=== PATIENT | male | born 1985 | race Caucasian/White ===

== ENCOUNTER 2019-05-28 14:35 | Emergency (ER) | payer OTHER ==
--- NOTE | 2019-05-28 14:40 | ERPHSYRPT ---
- History of Present Illness Time Seen by Provider: 05/28/19 14:40 Historian: patient Exam Limitations: no limitations Physician History: This is a 33-year-old white male who takes Ativan on a chronic daily basis. He has been out for the last few days. Patient states that he 2 to 3 days ago he had some nausea and vomiting episodes. However the last 2 days the vomiting has stopped but he has had persistent nausea. Patient also complains of some sweating. Patient denies chest pain he denies shortness of breath. He denies myalgias and arthralgias. The patient states that he she does not want any kind of work-up. Patient was offered IV fluids, antiemetics and obtaining urine and lab for evaluation. In addition, patient was offered an EKG as well as a respiratory panel. Patient refused all of the above. The only intervention he is excepting is oral Zofran with a prescription for home. Patient will sign a refusal of treatment. Timing/Duration: day(s) (3) Quality: other (Nausea) Severity of Pain-Max: none Severity of Pain-Current: none Modifying Factors: Improves With: vomiting, other (Nominate has subsided but he has persistent chronic nausea) Associated Symptoms: loss of appetite, nausea Previous symptoms: no prior history Allergies/Adverse Reactions: No Known Drug Allergies Allergy (Unverified 05/28/19 15:06) Home Medications: Alprazolam 0.5 mg [xanAX 0.5 MG] 0.5 mg BID 05/28/19 [History] Metoprolol Succinate 25 mg DAILY 05/28/19 [History] Travel Risk - International Travel Have you traveled outside of the country in past 3 weeks: No Have you or anyone close to you been diagnosed with or: No Do your reside in a community with a known COVID-19 case?: Yes If Yes where:: [facility] - Coronavirus Screening Has patient experienced Coronavirus symptoms: No - Review of Systems Constitutional: No Symptoms Eyes: No Symptoms Ears, Nose, & Throat: No Symptoms Respiratory: No Symptoms Cardiac: No Symptoms Abdominal/Gastrointestinal: Nausea, Appetite Changes, No Abdominal Pain (Nausea) , No Vomiting, No Diarrhea Genitourinary Symptoms: No Symptoms Musculoskeletal: No Symptoms Skin: No Symptoms Neurological: No Symptoms Psychological: No Symptoms Endocrine: No Symptoms Hematologic/Lymphatic: No Symptoms Immunological/Allergic: No Symptoms All Other Systems: Reviewed and Negative - Past Medical History Pertinent Past Medical History: No Neurological History: No Pertinent History ENT History: No Pertinent History Cardiac History: No Pertinent History Respiratory History: No Pertinent History Endocrine Medical History: No Pertinent History Musculoskeletal History: No Pertinent History GI Medical History: No Pertinent History History: No Pertinent History Psycho-Social History: No Pertinent History Male Reproductive Disorders: No Pertinent History - Past Surgical History Neuro Surgical History: No Pertinent History Cardiac: No Pertinent History Respiratory: No Pertinent History Gastrointestinal: No Pertinent History Genitourinary: No Pertinent History Musculoskeletal: No Pertinent History Male Surgical History: No Pertinent History - Nursing Vital Signs Nursing Vital Signs: Initial Vital Signs Temperature 97.2 F 05/28/19 14:49 Pulse Rate 89 05/28/19 14:49 Respiratory Rate 18 05/28/19 14:49 Blood Pressure 133/88 05/28/19 14:49 O2 Sat by Pulse Oximetry 98 05/28/19 14:49 Pain Scale Pain Intensity 0 - Physical Exam General Appearance: mild distress, alert, anxiety Eye Exam: PERRL/EOMI, eyes nml inspection Ears, Nose, Throat Exam: normal ENT inspection, moist mucous membranes Neck Exam: normal inspection, non-tender, supple, full range of motion Respiratory Exam: normal breath sounds, lungs clear, airway intact, No chest tenderness, No respiratory distress Cardiovascular Exam: regular rate/rhythm, normal heart sounds, normal peripheral pulses Gastrointestinal/Abdomen Exam: soft, normal bowel sounds, No tenderness Rectal Exam: not done Back Exam: normal inspection, normal range of motion, No CVA tenderness, No vertebral tenderness Extremity Exam: normal inspection, normal range of motion, pelvis stable Neurologic Exam: alert, oriented x 3, cooperative, 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 Skin Exam: normal color, warm, dry Lymphatic Exam: No adenopathy SpO2 Interpretation: normal O2 Delivery: Room Air - Course Nursing assessment & vital signs reviewed: Yes Ordered Tests: Active Orders 24 hr Category Date Time Status Isolation, Initiate & Maintain Q4H Care 05/28/19 14:56 Active Medication Summary Discontinued Medications Generic Name Dose Route Start Last Admin Trade Name Freq PRN Reason Stop Dose Admin Ondansetron HCl 4 mg 05/28/19 15:03 05/28/19 15:08 Zofran Odt 4 Mg PO 05/28/19 15:04 4 mg STAT ONE Administration Ondansetron HCl Confirm 05/28/19 15:08 Zofran Odt 4 Mg Administered 05/28/19 15:09 Dose 4 mg .ROUTE .STK-MED ONE - Progress Progress: unchanged Progress Note: 05/28/19 15:18 Patient is refusing all treatment other than Zofran ODT here in the emergency department. I discussed with him the risk of him having worsening symptoms and possible even . I told him I cannot give him a diagnosis if I cannot do a work-up. Patient understands the risks the alternatives and benefits of the alternatives. Patient still is refusing a work-up he will sign a refusal of treatment form. I told him I would send a prescription with him to his pharmacy for Zofran. I also offered him to return to the emergency department if his symptoms persist or worsen. Counseled pt/family regarding: diagnosis, need for follow-up - Departure Departure Disposition: Home Clinical Impression: Nausea Condition: Stable Critical Care Time: No Referrals: FROYLAN CRAWLEY JR [Primary Care Provider] - Additional Instructions: Clear liquid diet. Do not advance until you are tolerating liquids well. Return to the emergency department if your symptoms worsen. Follow-up with your primary care physician on an outpatient basis if your symptoms do not worsen but are persistent. Prescriptions: Ondansetron ODT 4 MG [Zofran Odt 4 mg] 4 mg PO Q6H PRN PRN #10 tab.rapdis PRN Reason: Vomiting
[2019-05-28] MEDS: ZOFRAN ODT 4 MG PO ONE (15:08)
[2019-05-28] MEDS ORDERED: ZOFRAN ODT 4 MG ONE (15:08)
[2019-05-28 15:32] VITALS: BP 120/80; PULSE 80; O2SAT 96
== END 2019-05-28 15:32 | disposition home or self-care (01) ==
LOC: ED 14:35
DX: R11.0 Nausea (principal); Z79.899 Other long term (current) drug therapy
CPT/HCPCS: 99283; Q0162

== ENCOUNTER 2019-12-05 19:25 | Emergency (ER) | payer OTHER ==
[2019-12-05] MEDS ORDERED: BENADRYL 50 MG/ML IV ONE (19:37)
[2019-12-05] MEDS ORDERED: solu-MEDROL 125 MG IV ONE (19:37)
--- NOTE | 2019-12-05 19:37 | ERPHSYRPT ---
- History of Present Illness Time Seen by Provider: 12/05/19 19:30 Source: patient Exam Limitations: no limitations Physician History: For the past 13.5 hours pt has had tightness in his neck, shortness of air, difficulty swallowing and vomiting x2 without blood. Pt denies abdominal pain, diarrhea, fever, chills. LBM was today & wnl. Pt took a 200mg tessalon perle about 22.5 hours ago. Allergies/Adverse Reactions: Penicillins Allergy (Severe, Verified 12/05/19 19:37) Shortness of Breath tramadol [From Ultram] Allergy (Severe, Verified 12/05/19 19:37) Shortness of Breath Home Medications: Alprazolam 0.5 mg [xanAX 0.5 MG] 0.5 mg PO BID 05/28/19 [History] Metoprolol Succinate 25 mg PO DAILY 05/28/19 [History] Benzonatate 200 mg PO TID 12/05/19 [History] Gabapentin 300 mg PO TID PRN 12/05/19 [History] Hx Tetanus, Diphtheria Vaccination/Date Given: No Hx Influenza Vaccination/Date Given: Yes Hx Pneumococcal Vaccination/Date Given: No Travel Risk - International Travel Have you traveled outside of the country in past 3 weeks: No - Coronavirus Screening Are you exhibiting any of the following symptoms?: Yes Symptoms: Shortness of Breath Close contact with a COVID-19 positive Pt in past 14-21 Days: No - Review of Systems Constitutional: No Fever, No Chills Ears, Nose, & Throat: Other (tightness in the neck and difficulty swallowing for the past 13.5 hours.) Respiratory: Dyspnea Cardiac: No Chest Pain Abdominal/Gastrointestinal: Vomiting, No Abdominal Pain, No Diarrhea Skin: No Rash Neurological: No Headache All Other Systems: Reviewed and Negative - Past Medical History Pertinent Past Medical History: No Neurological History: No Pertinent History ENT History: No Pertinent History Cardiac History: No Pertinent History Respiratory History: No Pertinent History Endocrine Medical History: No Pertinent History Musculoskeletal History: No Pertinent History GI Medical History: No Pertinent History History: No Pertinent History Psycho-Social History: No Pertinent History Male Reproductive Disorders: No Pertinent History Other Medical History: pt states he gets a lot of PVC's - Past Surgical History Past Surgical History: Yes Neuro Surgical History: No Pertinent History Cardiac: No Pertinent History Respiratory: No Pertinent History Gastrointestinal: No Pertinent History Genitourinary: No Pertinent History Musculoskeletal: No Pertinent History Male Surgical History: No Pertinent History - Social History Smoking Status: Former smoker Exposure to second hand smoke: No Drug Use: none Patient Lives Alone: No - Nursing Vital Signs Nursing Vital Signs: Initial Vital Signs Pulse Rate 87 12/05/19 19:36 Respiratory Rate 22 12/05/19 19:36 Blood Pressure 151/99 12/05/19 19:36 O2 Sat by Pulse Oximetry 98 12/05/19 19:36 Pain Scale Pain Intensity 5 - Physical Exam General Appearance: alert, anxiety Eye Exam: PERRL/EOMI Ears, Nose, Throat Exam: normal pharynx Neck Exam: normal inspection Respiratory Exam: lungs clear Cardiovascular/Chest Exam: normal heart sounds Abdominal/Gastrointestinal Exam: soft, normal bowel sounds Extremity Exam: No pedal edema Peripheral Pulses Exam: dorsalis-pedis (R): 2+, dorsalis-pedis (L): 2+ Neurologic Exam: alert, cooperative Skin Exam: warm, dry SpO2 Interpretation: normal SpO2: 98 O2 Delivery: Room Air - Course Nursing assessment & vital signs reviewed: Yes EKG Interpreted by Me: RATE (92), Sinus Rhythm, NORMAL AXIS, NORMAL INTERVALS - Radiology Exams Chest X-ray Interpretation: Interpreted by me, No Pneumonia Ordered Tests: Active Orders 24 hr Category Date Time Status EKG-ER Only STAT Care 12/05/19 19:37 Active IV Insertion STAT Care 12/05/19 19:37 Active CHEST 2 VIEWS (PA AND LAT) Stat Exams 12/05/19 19:38 Taken AMYLASE Stat Lab 12/05/19 19:40 Completed CBC W DIFF Stat Lab 12/05/19 19:40 Completed CMP Stat Lab 12/05/19 19:40 Completed D-DIMER QUANTITATIVE Stat Lab 12/05/19 19:40 Completed ETHYL ALCOHOL Stat Lab 12/05/19 19:57 Completed LIPASE Stat Lab 12/05/19 19:40 Completed MAGNESIUM Stat Lab 12/05/19 19:40 Completed NT PRO BNP Stat Lab 12/05/19 19:40 Completed TROPONIN Q3H Lab 12/05/19 19:40 Completed TROPONIN Q3H Lab 12/05/19 22:45 Ordered TROPONIN Q3H Lab 12/06/19 01:45 Ordered TROPONIN Q3H Lab 12/06/19 04:45 Ordered TROPONIN Q3H Lab 12/06/19 07:45 Ordered UA W/RFX UR CULTURE Stat Lab 12/05/19 19:41 Ordered Urine Triage Profile Stat Lab 12/05/19 19:42 Ordered Medication Summary Discontinued Medications Generic Name Dose Route Start Last Admin Trade Name Drakeq PRN Reason Stop Dose Admin Diphenhydramine HCl Confirm 12/05/19 19:38 Benadryl 50 Mg/Ml Administered 12/05/19 19:39 Dose 50 mg .ROUTE .STK-MED ONE Diphenhydramine HCl 50 mg 12/05/19 19:37 12/05/19 19:44 Benadryl 50 Mg/Ml IV 12/05/19 19:38 50 mg STAT ONE Administration Methylprednisolone Sodium Succinate Confirm 12/05/19 19:38 Solu-Medrol 125 Mg Administered 12/05/19 19:39 Dose 125 mg .ROUTE .STK-MED ONE Methylprednisolone Sodium Succinate 125 mg 12/05/19 19:37 12/05/19 19:44 Solu-Medrol 125 Mg IV 12/05/19 19:38 125 mg STAT ONE Administration Lab/Rad Data: Laboratory Result Diagrams 12/05/19 19:40 12/05/19 19:40 Laboratory Results 12/05/19 12/05/19 12/05/19 Range/Units 19:57 19:40 19:40 WBC (4.0-10.5) K/mm3 RBC (4.1-5.6) M/mm3 Hgb (12.5-18.0) gm/dl Hct (42-50) % MCV (78-100) fl MCH (26-32) pg MCHC (32-36) g/dl RDW (11.5-14.0) % Plt Count (150-450) K/mm3 MPV (7.5-11.0) fl Gran % (36.0-66.0) % Eos # (Auto) (0-0.5) Absolute Lymphs (auto) (1.0-4.6) Absolute Monos (auto) (0.0-1.3) Lymphocytes % (24.0-44.0) % Monocytes % (0.0-12.0) % Eosinophils % (0.00-5.0) % Basophils % (0.0-0.4) % Absolute Granulocytes (1.4-6.9) Basophils # (0-0.4) D-Dimer 414 (215-500) ng/mL Sodium (137-145) mmol/L Potassium (3.5-5.1) mmol/L Chloride (98-107) mmol/L Carbon Dioxide (22-30) mmol/L Anion Gap (5-15) MEQ/L BUN (9-20) mg/dL Creatinine (0.66-1.25) mg/dL Estimated GFR ML/MIN Glucose (74-106) mg/dL Calcium (8.4-10.2) mg/dL Magnesium (1.6-2.3) mg/dL Total Bilirubin (0.2-1.3) mg/dL AST (17-59) U/L ALT (0-50) U/L Alkaline Phosphatase (38-126) U/L Troponin I < 0.012 (0.000-0.034) ng/mL NT-Pro-B Natriuret Pep (0-450) pg/mL Serum Total Protein (6.3-8.2) g/dL Albumin (3.5-5.0) g/dL Amylase (30-110) U/L Lipase (23-300) U/L Ethyl Alcohol < 10 (0-10) mg/dL 12/05/19 12/05/19 Range/Units 19:40 19:40 WBC 13.4 H (4.0-10.5) K/mm3 RBC 4.63 (4.1-5.6) M/mm3 Hgb 15.0 (12.5-18.0) gm/dl Hct 44.7 (42-50) % MCV 96.5 (78-100) fl MCH 32.4 H (26-32) pg MCHC 33.6 (32-36) g/dl RDW 13.2 (11.5-14.0) % Plt Count 218 (150-450) K/mm3 MPV 8.9 (7.5-11.0) fl Gran % 76.6 H (36.0-66.0) % Eos # (Auto) 0.12 (0-0.5) Absolute Lymphs (auto) 1.67 (1.0-4.6) Absolute Monos (auto) 1.33 H (0.0-1.3) Lymphocytes % 12.5 L (24.0-44.0) % Monocytes % 9.9 (0.0-12.0) % Eosinophils % 0.9 (0.00-5.0) % Basophils % 0.1 (0.0-0.4) % Absolute Granulocytes 10.25 H (1.4-6.9) Basophils # 0.02 (0-0.4) D-Dimer (215-500) ng/mL Sodium 136 L (137-145) mmol/L Potassium 3.6 (3.5-5.1) mmol/L Chloride 101 (98-107) mmol/L Carbon Dioxide 28 (22-30) mmol/L Anion Gap 10.3 (5-15) MEQ/L BUN 14 (9-20) mg/dL Creatinine 0.68 (0.66-1.25) mg/dL Estimated GFR > 60.0 ML/MIN Glucose 100 (74-106) mg/dL Calcium 9.3 (8.4-10.2) mg/dL Magnesium 1.6 (1.6-2.3) mg/dL Total Bilirubin 1.20 (0.2-1.3) mg/dL AST 40 (17-59) U/L ALT 48 (0-50) U/L Alkaline Phosphatase 50 (38-126) U/L Troponin I (0.000-0.034) ng/mL NT-Pro-B Natriuret Pep 43.2 (0-450) pg/mL Serum Total Protein 7.7 (6.3-8.2) g/dL Albumin 4.6 (3.5-5.0) g/dL Amylase 118 H (30-110) U/L Lipase 39 (23-300) U/L Ethyl Alcohol (0-10) mg/dL - Progress Progress: improved Counseled pt/family regarding: lab results, need for follow-up, rad results - Departure Departure Disposition: Home Clinical Impression: Allergic reaction caused by a drug, Dyspnea, Vomiting Condition: Stable Critical Care Time: No Referrals: FROYLAN CRAWLEY JR [Primary Care Provider] - Additional Instructions: Do not take tessalon perle again. Follow up with private doctor tomorrow. Forms: Work/School Release Form Prescriptions: Hydroxyzine HCl 25 mg [Atarax 25 mg] 50 mg PO Q4H PRN PRN #30 tablet PRN Reason: Allergies Methylprednisolone Packet [Medrol Dosepack] 4 mg PO UD #30 packet
[2019-12-05] MEDS ORDERED: solu-MEDROL 125 MG ONE (19:38)
[2019-12-05] MEDS ORDERED: BENADRYL 50 MG/ML ONE (19:38)
[2019-12-05 19:52] LABS: Absolute Neutrophil Ct (ANC) 10.25 (1.4-6.9); BASOPHIL % 0.1 % (0.0-0.4); Basophil (Absolute #) 0.02 (0-0.4); Eosinophil % 0.9 % (0.00-5.0); Eosinophil (Absolute #) 0.12 (0-0.5); Hematocrit 44.7 % (42-50); Lymphocyte (Absolute #) 1.67 (1.0-4.6); Lymphocytes % 12.5 % (24.0-44.0); Mean Cell Volume 96.5 fl (78-100); Mean Corpuscular Hemoglobin 32.4 pg (26-32); Mean Corpuscular Hgb Concent. 33.6 g/dl (32-36); Mean Platelet Volume 8.9 fl (7.5-11.0); Monocyte (Absolute #) 1.33 (0.0-1.3); Monocytes % 9.9 % (0.0-12.0); Neutrophil % 76.6 % (36.0-66.0); Platelet Count 218 K/mm3 (150-450); Red Blood Count 4.63 M/mm3 (4.1-5.6); Red Cell Distribution Width 13.2 % (11.5-14.0); White Blood Count 13.4 K/mm3 (4.0-10.5)
[2019-12-05 20:13] LABS: ALBUMIN 4.6 g/dL (3.5-5.0); ALKALINE PHOSPHATASE 50 U/L (38-126); AMYLASE 118 U/L (30-110); ANION GAP 10.3 MEQ/L (5-15); BLOOD UREA NITROGEN 14 mg/dL (9-20); CHLORIDE 101 mmol/L (98-107); Calcium 9.3 mg/dL (8.4-10.2); Carbon Dioxide 28 mmol/L (22-30); Creatinine 1 0.68 mg/dL (0.66-1.25); EST GLOMERULAR FILTRATION RATE > 60.0 ML/MIN; Glucose 100 mg/dL (74-106); LIPASE 39 U/L (23-300); MAGNESIUM 1.6 mg/dL (1.6-2.3); NT PRO BNP 43.2 pg/mL (0-450); Potassium 3.6 mmol/L (3.5-5.1); SGOT/AST 40 U/L (17-59); SGPT/ALT 48 U/L (0-50); SODIUM 136 mmol/L (137-145); Total Protein 7.7 g/dL (6.3-8.2)
[2019-12-05 20:16] VITALS: PULSE 87
[2019-12-05 20:24] VITALS: O2SAT 98
[2019-12-05 20:45] LABS: Appearance CLEAR (CLEAR); Bilirubin NEGATIVE (NEGATIVE); Blood NEGATIVE Ery/ul (0-5); Glucose NEGATIVE (NEGATIVE); Ketones NEGATIVE (NEGATIVE); Leukocyte Esterase NEGATIVE (NEGATIVE); Mucus SLIGHT /HPF (NEGATIVE); Nitrite NEGATIVE (NEGATIVE); Protein,Urine Dip NEGATIVE (Negative); Specific Gravity 1.004 (1.005-1.025); Urobilinogen NEGATIVE mg/dL (0-1)
[2019-12-05 20:58] LABS: Amphetamine,Urine NEGATIVE (NEGATIVE); Barbiturate,Urine NEGATIVE (NEGATIVE); Benzodiazepine,Urine NEGATIVE (NEGATIVE); Cocaine,Urine NEGATIVE (NEGATIVE); Methadone,Urine NEGATIVE (NEGATIVE); Opiate,Urine NEGATIVE (NEGATIVE); PCP,Urine NEGATIVE (NEGATIVE); THC,Urine NEGATIVE (NEGATIVE)
[2019-12-05 21:19] VITALS: BP 134/83
--- NOTE | 2019-12-06 08:40 | XRAY ---
Indication: Chest tightness, short of breath, and swelling in throat. Comparison: None PA/lateral chest hyperinflated and clear. Heart and mediastinal structures within normal limits. Bony thorax intact with mild pectus carinatum deformity. Impression: Nonacute hyperinflated chest.
== END 2019-12-05 21:12 | disposition home or self-care (01) ==
LOC: ED 19:25
DX: T50.905A Adverse effect of unspecified drugs, medicaments and biological substances, initial encounter (principal); R06.00 Dyspnea, unspecified; R11.10 Vomiting, unspecified
CPT/HCPCS: 36000; 36415; 71046; 80053; 80307; 81001; 82150; 83690; 83735; 83880; 84484; 85025; 85379; 93005; 96374; 96375; 99284; G0480; J1200; J2930